=== PATIENT | female | born 2000 | race Hispanic/Latino ===

== ENCOUNTER 2018-05-26 18:50 | Emergency (ER) | payer OTHER ==
--- OUTSIDE RECORDS SUMMARY | 2018-05-26 18:52 | XMS REPORT ---
:2000 Author Organization eClinicalWorks Care Team Providers Name Role Phone Iesha Roche Provider Role Unavailable Allergies, Adverse Reactions, Alerts Substance Reaction Event Type N.K.D.A. Info Not Available Non Drug Allergy Problems Problem Type Condition Code Onset Dates Condition Status Assessment Acute bacterial conjunctivitis of H10.32 Active left eye Problem Fatty liver K76.0 Active Medications Medication Code Code Instructions Start End Date Status Dosage System Date Polytrim [facility] [id number] May 22, May 27, Active 1 drop into UNIT/ML 2017 2017 affected eye Ophthalmic Four times a day Results No Known Results Summary Purpose eClinicalWorks Submission
--- OUTSIDE RECORDS SUMMARY | 2018-05-26 18:52 | XMS REPORT ---
:2000 Author Organization eClinicalWorks Care Team Providers Name Role Phone Iesha Roche Provider Role Unavailable Allergies, Adverse Reactions, Alerts Substance Reaction Event Type N.K.D.A. Info Not Available Non Drug Allergy Problems Problem Type Condition Code Onset Dates Condition Status Assessment Encounter for general adult medical Z00.00 Active examination without abnormal findings Assessment Encounter for immunization Z23 Active Assessment Meningococcal group B vaccine Z23 Active administered Medications No Known Medications Results No Known Results Immunizations Vaccine Administration Date Meningoccal MCV4 April 14, 2018 Meningococcal Group B April 14, 2018 Summary Purpose eClinicalWorks Submission
[2018-05-26] MEDS ORDERED: KETOROLAC 30 MG/ML INJ ONE (19:50)
[2018-05-26] MEDS ORDERED: NA CHLORIDE 0.9% 1,000 ML ONE (19:51)
[2018-05-26] MEDS ORDERED: ONDANSETRON 4 MG/2 ML VIAL ONE (19:51)
[2018-05-26] MEDS ORDERED: ACETAMINOPHEN 500 MG TAB ONE (19:51)
[2018-05-26 20:30] LABS: Urine Blood NEGATIVE (NEG); Urine Glucose NEGATIVE (NEG); Urine Protein NEGATIVE (NEG); Urine Specific Gravity <1.005 (1.005-1.030)
[2018-05-26 20:33] LABS: Absolute Lymphocytes (CBC) 1.4 K/uL (0.7-4.9); Absolute Monocytes 0.5 K/uL (0.1-1.3); Absolute Neutrophil 5.3 K/uL (1.8-8.0); Basophils % 0.2 % (0-1.3); Eosinophils % 0.1 % (0-4.4); Lymphocytes % 18.9 % (15.3-44.8); MCH 31.5 pg (27.0-35.0); MCV 90.9 fL (80-100); MPV 8.3 fL (7.6-11.3); Monocytes % 7.2 % (3.3-12.3); RBC Red Blood Cell Count 4.19 M/uL (3.86-4.86)
[2018-05-26 20:43] LABS: Protime INR 1.01
[2018-05-26 20:56] LABS: Urine Bacteria <20 /HPF (<20); Urine Culture Reflex Order REFLEXED; Urine RBC <5 /HPF (NONE SEEN)
[2018-05-26 21:00] LABS: ALT/SGPT 86 U/L (12-78); AST/SGOT 57 U/L (15-37); Albumin 3.4 g/dL (3.4-5.0); Alkaline Phosphatase 172 U/L (45-117); BUN Blood Urea Nitrogen 9 mg/dL (7-18); Bicarbonate 26 mmol/L (21-32); Bilirubin Direct 0.1 mg/dL (0-0.2); Bilirubin Total 0.3 mg/dL (0.2-1.0); Glucose Level 94 mg/dL (74-106); Lipase 118 U/L (73-393); Potassium 3.4 mmol/L (3.5-5.1); Protein, Total 7.9 g/dL (6.4-8.2); Sodium Level 137 mmol/L (136-145)
[2018-05-26] MEDS ORDERED: CEFTRIAXONE/SWI 1gm 1 GM/10 ML SYR ONE (21:39)
--- NOTE | 2018-05-26 23:21 | ER ---
Nurse's Notes [facility] Name: Seda Brush Age: 17 yrs Sex: Female : 2000 Arrival Date: 05/26/2018 Time: 18:52 Bed 25 Private MD: DAVID CHOWDHURY Diagnosis: Acute Febrile Illness;Left Eye Conjunctivitis;Infectious mononucleosis Presentation: 05/26 19:00 Presenting complaint: Patient states: Left eye redness, left face tenderness, headache, aj nasal congestion for 2 days. On Augmentin and ABX eye drops. Transition of care: patient was not received from another setting of care. Onset of symptoms was May 25, 2018. Risk Assessment: Do you want to hurt yourself or someone else? Patient reports no desire to harm self or others. Initial Sepsis Screen: Does the patient meet any 2 criteria? No. Patient's initial sepsis screen is negative. Does the patient have a suspected source of infection? No. Patient's initial sepsis screen is negative. 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 Care prior to arrival: Medication(s) given: Tylenol. 19:00 Method Of Arrival: Ambulatory aj 19:00 Acuity: SHAKIR 3 aj Triage Assessment: 19:02 General: Appears in no apparent distress. comfortable, Behavior is calm, cooperative, aj appropriate for age. Pain: Complains of pain in face and scalp. EENT: Reports redness to left eye. Neuro: Level of Consciousness is awake, alert, obeys commands, Oriented to person, place, time, situation, Appropriate for age. Respiratory: Airway is patent Respiratory effort is even, unlabored, Respiratory pattern is regular, symmetrical. Derm: Skin is intact, is healthy with good turgor, Skin is pink, warm \T\ dry. normal. 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 - Social history:: Smoking status: Patient/guardian denies using tobacco. - Ebola Screening: : Patient negative for fever greater than or equal to 101.5 degrees Fahrenheit, and additional compatible Ebola Virus Disease symptoms Patient denies exposure to infectious person Patient denies travel to an Ebola-affected area in the 21 days before illness onset No symptoms or risks identified at this time. - Family history:: not pertinent. - Hospitalizations: : No recent hospitalization is reported. Screenin:59 Abuse screen: Denies threats or abuse. Denies injuries from another. Nutritional mg2 screening: No deficits noted. Tuberculosis screening: No symptoms or risk factors identified. Fall Risk IV access (20 points). Assessment: 20:57 General: Appears in no apparent distress. comfortable, Behavior is calm, cooperative. mg2 Pain: Complains of pain in scalp and face whole body Pain does not radiate. Pain currently is 5 out of 10 on a pain scale. Quality of pain is described as aching, Pain began gradually, 5 days ago Is intermittent. Neuro: Level of Consciousness is awake, alert, obeys commands, Oriented to person, place, time, situation. Cardiovascular: Capillary refill < 3 seconds Patient's skin is warm and dry. Respiratory: Airway is patent Respiratory effort is even, unlabored, Respiratory pattern is regular, symmetrical. GI: Reports nausea. : No signs and/or symptoms were reported regarding the genitourinary system. EENT: Eyes are tearing on outer aspect of conjuctiva of left eye, iris of left eye and inner aspect of conjunctiva of left eye. Derm: Skin is intact, Skin is pink, warm \T\ dry. normal. Musculoskeletal: Circulation, motion, and sensation intact. 22:47 Reassessment: Patient appears in no apparent distress at this time. Patient and/or mg2 family updated on plan of care and expected duration. Pain level reassessed. Patient is alert, oriented x 3, equal unlabored respirations, skin warm/dry/pink. Vital Signs: 19:02 BP 117 / 70; Pulse 119; Resp 20; Temp 101.1; Pulse Ox 100% on R/A; Weight 58.51 kg; aj Height 4 ft. 11 in. (149.86 cm); 21:00 BP 110 / 63; Pulse 110; Resp 18; Temp 100.2; Pulse Ox 100% on R/A; Pain 3/10; mg2 21:26 Temp 99.7(O); mg2 21:56 BP 110 / 76; Pulse 113; Resp 18; Pulse Ox 100% on R/A; Pain 0/10; mg2 22:47 BP 106 / 76; Pulse 106; Resp 18; Temp 98.6(O); Pulse Ox 100% on R/A; Pain 0/10; mg2 23:43 BP 110 / 72; Pulse 98; Resp 18; Pulse Ox 100% on R/A; Pain 0/10; mg2 19:02 Body Mass Index 26.05 (58.51 kg, 149.86 cm) ED Course: 18:52 Patient arrived in ED. sb2 18:53 DAVID CHOWDHURY is Private Physician. sb2 19:02 Triage completed. aj 19:02 Arm band placed on right wrist. Patient placed in an exam room. aj 19:15 Pj Miller MD is Attending Physician. wa 19:29 Mohsen Iniguez, SARITA is Primary Nurse. mg2 20:57 No provider procedures requiring assistance completed. Inserted saline lock: 20 gauge mg2 in right antecubital area, using aseptic technique. Blood collected. 21:00 Patient has correct armband on for positive identification. Placed in gown. Bed in low mg2 position. Call light in reach. Side rails up X 1. Door closed. Warm blanket given. 23:18 mono test added to the lab. mg2 23:33 IV discontinued, intact, bleeding controlled, No redness/swelling at site. Pressure mg2 dressing applied. Administered Medications: 20:07 Drug: NS 0.9% 1000 ml Route: IV; Rate: 1 bolus; Site: right antecubital; mg2 21:54 Follow up: Response: No adverse reaction; IV Status: Completed infusion mg2 20:07 Drug: Zofran 4 mg Route: IVP; Site: right antecubital; mg2 21:55 Follow up: Response: No adverse reaction; Marked relief of symptoms mg2 20:07 Drug: TORadol 30 mg Route: IVP; Site: right antecubital; mg2 21:55 Follow up: Response: No adverse reaction; Marked relief of symptoms; Pain is decreased mg2 21:54 Drug: Tylenol 1000 mg Route: PO; mg2 21:55 Follow up: Response: No adverse reaction; Medication administered at discharge. mg2 21:54 Drug: Rocephin - (cefTRIAXone) 1 grams Route: IVPB; Infused Over: 30 mins; Site: right mg2 antecubital; 21:55 Follow up: Response: No adverse reaction; Medication administered at discharge.; IV mg2 Status: Completed infusion Outcome: 23:20 Discharge ordered by . neto 23:43 Discharged to home ambulatory, with family. mg2 23:43 Condition: stable 23:43 Discharge instructions given to patient, family, Instructed on discharge instructions, follow up and referral plans. medication usage, Demonstrated understanding of instructions, follow-up care, medications, Prescriptions given X 1. 23:50 Patient left the ED. mg2 Signatures: Juliana Harry, RN RN aj Pj Miller MD MD wa Billeau, Sheri sb2 Mohsen Iniguez RN RN mg2
--- NOTE | 2018-05-26 23:21 | EDPHYS ---
Physician Documentation [facility] Name: Seda Brush Age: 17 yrs Sex: Female : 2000 Arrival Date: 05/26/2018 Time: 18:52 Bed 25 Private MD: DAVID CHOWDHURY ED Physician Pj Miller HPI: 05/26 19:56 This 17 yrs old Female presents to ER via Ambulatory with complaints of Flu wa Symptoms. 19:56 The patient reports fever, that was measured at 101.1 degrees Fahrenheit. Onset: The wa symptoms/episode began/occurred 6 day(s) ago. Modifying factors: there are no obvious modifying factors. Associated signs and symptoms: Pertinent positives: chills, headache, sore throat, began with L eye redness and discharge. then L facial pain. a day later developed chills and fever. has also had some vomiting and diarrhea. admits to KING. denies photophobia. started on amox yesterday by PMD. still with fever. admits to mild sore throat that has now improved, Pertinent negatives: abdominal pain, backache, chest pain, cough, night sweats, runny nose, shortness of breath. Severity of symptoms: At their worst the symptoms were moderate in the emergency department the symptoms are unchanged. The patient has not experienced similar symptoms in the past. The patient has been recently seen by a physician: the patient's primary care provider. 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 - Social history:: Smoking status: Patient/guardian denies using tobacco. - Ebola Screening: : Patient negative for fever greater than or equal to 101.5 degrees Fahrenheit, and additional compatible Ebola Virus Disease symptoms Patient denies exposure to infectious person Patient denies travel to an Ebola-affected area in the 21 days before illness onset No symptoms or risks identified at this time. - Family history:: not pertinent. - Hospitalizations: : No recent hospitalization is reported. ROS: 19:59 Neck: Negative for injury, pain, and swelling, Cardiovascular: Negative for chest pain, wa palpitations, and edema, Respiratory: Negative for shortness of breath, cough, wheezing, and pleuritic chest pain, Abdomen/GI: Negative for abdominal pain, nausea, vomiting, diarrhea, and constipation, Back: Negative for injury and pain, : Negative for injury, bleeding, discharge, and swelling, MS/Extremity: Negative for injury and deformity, Skin: Negative for injury, rash, and discoloration. 19:59 Constitutional: Positive for body aches, chills, fatigue, fever, malaise, Negative for weight loss. 19:59 Eyes: Positive for discharge, redness, swelling, of the L eye. 19:59 ENT: Positive for sore throat, Negative for ear pain, nasal discharge, rhinorrhea, difficulty swallowing, hoarseness. 19:59 Neuro: Positive for headache, Negative for altered mental status, dizziness. 19:59 All other systems are negative. Exam: 20:01 Neck: Trachea midline, no thyromegaly or masses palpated, and no cervical wa lymphadenopathy. Supple, full range of motion without nuchal rigidity, or vertebral point tenderness. No Meningismus. Chest/axilla: Normal chest wall appearance and motion. Nontender with no deformity. No lesions are appreciated. Cardiovascular: Regular rate and rhythm with a normal S1 and S2. No gallops, murmurs, or rubs. Normal PMI, no JVD. No pulse deficits. Respiratory: Lungs have equal breath sounds bilaterally, clear to auscultation and percussion. No rales, rhonchi or wheezes noted. No increased work of breathing, no retractions or nasal flaring. Abdomen/GI: Soft, non-tender, with normal bowel sounds. No distension or tympany. No guarding or rebound. No evidence of tenderness throughout. Back: No spinal tenderness. No costovertebral tenderness. Full range of motion. Skin: Warm, dry with normal turgor. Normal color with no rashes, no lesions, and no evidence of cellulitis. MS/ Extremity: Pulses equal, no cyanosis. Neurovascular intact. Full, normal range of motion. Psych: Awake, alert, with orientation to person, place and time. Behavior, mood, and affect are within normal limits. 20:01 Constitutional: The patient appears in no acute distress, alert, febrile. 20:01 Head/face: Noted is L periorbital swelling. mild. L eye noted reddened. 20:01 Eyes: Conjunctiva: injected, in the left eye, Corneas: are normal. 20:01 ENT: Posterior pharynx: erythema, that is moderate, exudate, that is moderate. 20:01 Neuro: Orientation: is normal, Mentation: is normal, Cranial nerves: grossly normal, Motor: is normal, Gait: is steady. Vital Signs: 19:02 BP 117 / 70; Pulse 119; Resp 20; Temp 101.1; Pulse Ox 100% on R/A; Weight 58.51 kg; aj Height 4 ft. 11 in. (149.86 cm); 21:00 BP 110 / 63; Pulse 110; Resp 18; Temp 100.2; Pulse Ox 100% on R/A; Pain 3/10; mg2 21:26 Temp 99.7(O); mg2 21:56 BP 110 / 76; Pulse 113; Resp 18; Pulse Ox 100% on R/A; Pain 0/10; mg2 22:47 BP 106 / 76; Pulse 106; Resp 18; Temp 98.6(O); Pulse Ox 100% on R/A; Pain 0/10; mg2 23:43 BP 110 / 72; Pulse 98; Resp 18; Pulse Ox 100% on R/A; Pain 0/10; mg2 19:02 Body Mass Index 26.05 (58.51 kg, 149.86 cm) aj MDM: 19:15 Patient medically screened. pr 20:03 Differential diagnosis: viral Infection, bacterial infection, suspect viral illness. pr supportive care. will r/o bacterial source. pt denies sexual contact. 22:42 Data reviewed: vital signs, nurses notes. Test interpretation: by ED physician or pr midlevel provider: labs noted for elevated sed rate. 5-10 wbc in UA. . Response to treatment: the patient's symptoms have markedly improved after treatment. ED course: tolerated meal in ED. I still suspect viral illness consider mono? . 23:33 Test interpretation: by ED physician or midlevel provider: mono test positive. pr 05/26 19:33 Order name: Urine Microscopic Only; Complete Time: 21:20 05/26 19:33 Order name: Basic Metabolic Panel; Complete Time: 21:20 05/26 19:33 Order name: Blood Culture Adult (2) pr 05/26 19:33 Order name: C-Reactive Protein; Complete Time: 21:20 pr 05/26 19:33 Order name: CBC with Diff; Complete Time: 21:20 pr 05/26 19:33 Order name: Lactate; Complete Time: 21:20 pr 05/26 19:33 Order name: LFT's; Complete Time: 21:20 pr 05/26 19:33 Order name: Lipase; Complete Time: 21:20 pr 05/26 19:33 Order name: Protime (+inr); Complete Time: 21:20 pr 05/26 19:33 Order name: Sed Rate; Complete Time: 21:20 pr 05/26 19:33 Order name: Strep; Complete Time: 21:20 pr 05/26 20:22 Order name: Urine Dipstick--Ancillary (enter results); Complete Time: 21:20 [facility] 05/26 20:22 Order name: Urine --Ancillary (enter results); Complete Time: 21:19 [facility] 05/26 20:47 Order name: Throat Culture [facility] 05/26 19:33 Order name: Urine Test (obtain specimen); Complete Time: 20:57 pr 05/26 19:33 Order name: Cardiac monitoring; Complete Time: 20:08 pr 05/26 19:33 Order name: IV Saline Lock - Large Bore; Complete Time: 20:08 pr 05/26 19:33 Order name: Labs collected and sent; Complete Time: 20:08 pr 05/26 19:33 Order name: O2 Sat Monitoring; Complete Time: 20:08 pr 05/26 19:33 Order name: Urine Dipstick-Ancillary (obtain specimen); Complete Time: 20:57 pr 05/26 20:57 Order name: Urine Culture [facility] 05/26 22:43 Order name: [place] Screen Profile; Complete Time: 23:28 pr Administered Medications: 20:07 Drug: NS 0.9% 1000 ml Route: IV; Rate: 1 bolus; Site: right antecubital; mg2 21:54 Follow up: Response: No adverse reaction; IV Status: Completed infusion mg2 20:07 Drug: Zofran 4 mg Route: IVP; Site: right antecubital; mg2 21:55 Follow up: Response: No adverse reaction; Marked relief of symptoms mg2 20:07 Drug: TORadol 30 mg Route: IVP; Site: right antecubital; mg2 21:55 Follow up: Response: No adverse reaction; Marked relief of symptoms; Pain is decreased mg2 21:54 Drug: Tylenol 1000 mg Route: PO; mg2 21:55 Follow up: Response: No adverse reaction; Medication administered at discharge. mg2 21:54 Drug: Rocephin - (cefTRIAXone) 1 grams Route: IVPB; Infused Over: 30 mins; Site: right mg2 antecubital; 21:55 Follow up: Response: No adverse reaction; Medication administered at discharge.; IV mg2 Status: Completed infusion Disposition: 05/26/18 23:20 Discharged to Home. Impression: Acute Febrile Illness, Left Eye Conjunctivitis, Infectious mononucleosis. - Condition is Stable. - Discharge Instructions: Infectious Mononucleosis, [id number]. - Prescriptions for Zofran 4 mg Oral Tablet - take 1 tablet by ORAL route every 12 hours As needed; 20 tablet. - Medication Reconciliation Form, Thank You Letter, Antibiotic Education, Prescription Opioid Use form. - Follow up: Private Physician; When: 1 - 2 days; Reason: Recheck today's complaints. - Problem is new. - Symptoms have improved. - Notes: return immediately for rapidly worsening concerns. see your doctor for further evaluation within 2-3 days otherwise Signatures: Dispatcher [employer] EDJuliana Roberts RN RN aj Appiah, William, MD MD wa Gardose, Michele, RN RN mg2 Corrections: (The following items were deleted from the chart) 23:34 23:20 05/26/2018 23:20 Discharged to Home. Impression: Acute Febrile Illness; Left Eye wa Conjunctivitis. Condition is Stable. Forms are Medication Reconciliation Form, Thank You Letter, Antibiotic Education, Prescription Opioid Use. Follow up: Private Physician; When: 1 - 2 days; Reason: Recheck today's complaints. Problem is new. Symptoms have improved. pr 23:50 23:34 05/26/2018 23:20 Discharged to Home. Impression: Acute Febrile Illness; Left Eye mg2 Conjunctivitis; Infectious mononucleosis. Condition is Stable. Prescriptions for Zofran 4 mg Oral Tablet - take 1 tablet by ORAL route every 12 hours As needed; 20 tablet. and Forms are Medication Reconciliation Form, Thank You Letter, Antibiotic Education, Prescription Opioid Use. Follow up: Private Physician; When: 1 - 2 days; Reason: Recheck today's complaints. Problem is new. Symptoms have improved. neto
== END 2018-05-26 23:50 | disposition home or self-care (01) ==
LOC: ER 18:50
DX: B27.90 Infectious mononucleosis, unspecified without complication (principal); R50.9 Fever, unspecified; H10.32 Unspecified acute conjunctivitis, left eye
CPT/HCPCS: 36415; 80048; 80076; 81003; 81015; 81025; 83605; 83690; 85025; 85610; 85652; 86140; 86308; 87040; 87070; 87081; 87086; 87088; 96361; 96374; 96375; 99284; J0696; J2405; J7030

== ENCOUNTER 2024-02-18 02:04 | Emergency (ER) | payer OTHER, SELFPAY ==
--- OUTSIDE RECORDS SUMMARY | 2024-02-18 02:08 | XMS REPORT | Continuity of Care Document ---
Author Name Unknown Address [address] [facility] Alex. [address] [place] [address] [facility] thconnect Address [address] [facility]. [address] [place] [address] Care Team Providers Care Ammonium Nitrate Neutralizer Name Role Phone AL AMARAL Primary Care Physician Unavail able Marilyn Roche Attending Clinician Unavailable Liang George Attending Clinician Unavailable Liang George Attending Clinician Unavailable [email or web address]_S Attending Clinician Unavaila KARAN Rodgers Attending Clinician Unavailable MAYELA HOUGH Attending Clinician Unavailable EbrahiMayela Chan Attending Clinician [phone] Doctor Unassigned, Badger Lee Attending Clinician U navailable Provider, [facility] Attending Clinician Un available Suzy Bloom Attending Clinician [phone] Liang George Admitting Clinician Unavailable [email or web address]_S Admitting Clinician Unavaila ble EBMAYELA CORDOVA Admitting Clinician Unavailable Payers Payer Name Policy Type Policy Number Effective Date Expirati on Date Source [facility] [id number] 2020 00:00:00 Problems Condition Name Condition Details Condition Category Status Onset Date Resolution Date Last Treatment Date Treating Clinician Comments Source Oral contracept yobani use Oral contracept yobani use Disease Active 01-17 00:00: 00 [facility] On oral contracept yobani pills for non-contra ception indication On oral contracept yobani pills for non-contra ception indication Disease Active 01-17 00:00: 00 [facility] Acute bacterial conjunctiv itis of left eye Acute bacterial conjunctiv itis of left eye Problem Active [facility] Fatty liver Fatty liver Diagnosis Active [facility] Encounter for general adult medical examinatio n without abnormal findings Encounter for general adult medical examinatio n without abnormal findings Problem Active [facility] Elevated liver enzymes Elevated liver enzymes Diagnosis Active [facility] Allergies, Adverse Reactions, Alerts Allergy Name Allergy Type Status Severity Reaction(s) Onset Date Inactive Date Treating Clinician Comments Source Iodine And Iodide Containi ng Products Propensi ty to adverse reaction s Active Rash 05-12 00:00: 00 [facility] IODINE AND IODIDE CONTAINI NG PRODUCTS Drug Class Active Rash 05-12 00:00: 00 [facility] Oseltami vir Phosphat e Propensi ty to adverse reaction s Active Rash 01-10 00:00: 00 [facility] OSELTAMI VIR PHOSPHAT E DRUG INGREDI Active Rash 01-10 00:00: 00 [facility] No Known Medicati on Allergie s Drug Active [facility] No Known Medicati on Allergie s Drug Active [facility] No Known Medicati on Allergie s Drug Active [facility] No Known Medicati on Allergie s Drug Active [facility] No Known Medicati on Allergie s Drug Active [facility] Social History Social Habit Start Date Stop Date Quantity Comments Source Exposure to SARS-CoV-2 (event) Not sure [facility] Alcohol intake 2020-08-10 00:00:00 2020-08-10 00:00:00 0 /d [facility] Tobacco use and exposure 2016-01-08 00:00:00 2016-01-08 00:00:00 Never used [facility] Sex Assigned At 2000 00:00:00 2000 00:00:00 [facility] Smoking Status Start Date Stop Date Source Never smoker [facility] Medications Ordered Medication Name Filled Medication Name Start Date Stop Date Current Medication? Ordering Clinician Indication Dosage Frequency Signature (SIG) Comments Components Source cefTRIAXone (ROCEPHIN) 1,000 mg in NaCl 0.9% (NS) 50 mL MINI-BAG 2020-10 21:45: 00 08-27 21:25 :00 No 1000mg 1,000 mg, IV Piggyback, ONCE, 1 dose, On Fri08/27/21 at 1645, Administer over 30 Minutes, 50 mL
Reas on for Anti-Infec tive: Documented Infection< br>Documen penny Infection Site: Urine
D uration of Therapy: Other (see Comments) [facility] acetaminoph en (TYLENOL) tablet 1,000 mg 2020-10 21:45: 00 08-27 20:44 :00 No 1000mg 1,000 mg, Oral, ONCE, 1 dose, On Fri08/27/21 at 1645, [place] [facility] iopamidol (ISOVUE 370-500 mL) injection 100 mL 2020-10 21:30: 00 08-27 20:11 :00 No [id number] 100mL 100 mL, Intravenou s, ONCE, 1 dose, On Fri08/27/21 at 1630, Routine [facility] morpHINE injection 4 mg 2020-10 19:15: 00 08-27 20:44 :00 No 4mg 4 mg, Slow IV Push, ONCE, 1 dose, On Fri08/27/21 at 1415, STAT [facility] ondansetron (ZOFRAN (PF)) injection 4 mg 2020-10 18:45: 00 08-27 20:44 :00 No 4mg 4 mg, Slow IV Push, ONCE, 1 dose, On Fri08/27/21 at 1345, [place] [facility] NaCl 0.9% (NS) bolus infusion 1,000 mL 2020-10 18:45: 00 08-27 22:15 :00 No 1000mL at 999 mL/hr, 1,000 mL, IV Infusion, ONCE, 1 dose, On Fri08/27/21 at 1345, W[place]ACE [facility] cefdinir 300 mg capsule 2020-10 00:00: 00 09-07 05:59 :00 No [id number] 300mg Take 1 capsule by mouth every 12 (twelve) hours for 10 days. [facility] ondansetron 4 mg disintegrat ing tablet 2020-10 00:00: 00 09-02 04:59 :00 No [id number] 4mg Take 1 tablet by mouth every 8 (eight) hours as needed for Nausea and Vomiting (N/V) for up to 5 days. [facility] Amoxicillin Amoxicillin 05-25 00:00: 00 06-01 00:00 :00 No Iesha Holstein 1 tablet Comm on [facility] Polytrim Polytrim 05-22 00:00: 00 05-27 00:00 :00 No Iesha Holstein 1 drop into affected eye [facility] L. RHAMNOSUS GG/INULIN (CULTURELLE PROBIOTICS ORAL) 02-19 20:43: 56 Yes Take by mouth. [facility] L. RHAMNOSUS GG/INULIN (CULTURELLE PROBIOTICS ORAL) 02-19 15:43: 56 Yes Take by mouth. [facility] norgestimat e-ethinyl estradiol (MONONESSA) 0.25-35 mg-mcg per tablet 02-19 00:00: 00 Yes [id number] 1{tbl} Take 1 tablet by mouth daily. [facility] dicyclomine 20 mg tablet 12-31 00:00: 00 Yes [facility] Vital Signs Vital Name Observation Time Observation Value Comments S tanialiana Height/Length Measured 2020-06-01 08:15:19 Systolic blood pressure 2021-08-27 22:16:00 102 mm[Hg] [facility] Diastolic blood pressure 2021-08-27 22:16:00 64 mm[Hg] [facility] Heart rate 2021-08-27 22:16:00 99 /[facility] 2021-08-27 22:16:00 16 /min [facility] Oxygen saturation in Arterial blood by Pulse oximetry 2021-08-27 22:16:00 99 /min [facility] Body temperature 2021-08-27 20:54:00 38.17 Chery [facility] Body height 2021-08-27 17:07:[address] [facility] Body weight 2021-08-27 17:07:[address] [facility] BMI 2021-08-27 17:07:00 27.22 kg/m2 [facility] Heart rate 2020-08-10 14:12:00 96 /min Unive [facility] Oxygen saturation in Arterial blood by Pulse oximetry 2020-08-10 14:12:00 98 /min [facility] Systolic blood pressure 2020-08-10 13:55:00 121 mm[Hg] [facility] Diastolic blood pressure 2020-08-10 13:55:00 75 mm[Hg] [facility] Body temperature 2020-08-10 13:55:00 37.11 Chery [facility] Respiratory rate 2020-08-10 13:55:00 18 /min [facility] Body height 2020-08-10 13:55:[address] [facility] Body weight 2020-08-10 13:55:[address] [facility] BMI 2020-08-10 13:55:00 26.66 kg/m2 [facility] Height/Length Measured 2021-11-13 12:31:33 149.86 cm Weight Dosing 2021-11-13 12:31:33 60.78 kg Height/Length Measured 2021-11-13 11:49:11 149.86 cm Weight Dosing 2021-11-13 11:49:11 60.78 kg Height/Length Measured 2021-11-13 11:48:01 149.86 cm Weight Dosing 2021-11-13 11:48:01 61.68 kg Height/Length Measured 2021-11-13 11:48:00 149.86 cm Weight Dosing 2021-11-13 11:48:00 61.68 kg Height/Length Measured 2021-11-13 11:47:30 149.86 cm Weight Dosing 2021-11-13 11:47:30 61.68 kg Height/Length Measured 2021-11-13 11:47:28 149.86 cm Weight Dosing 2021-11-13 11:47:28 61.68 kg Height/Length Measured 2021-11-13 11:46:51 149.86 cm Weight Dosing 2021-11-13 11:46:51 61.68 kg Height/Length Measured 2020-06-06 06:57:38 Weight Dosing 2020-06-06 06:57:38 Procedures Procedure Date / Time Performed Performing Clinicia n Source CT ABDOMEN PELVIS W CONTRAST 2021-08-27 20:14:00 Mayela Hough [facility] LIPASE 2021-08-27 19:37:00 Mayela Hough [facility] COMP. METABOLIC PANEL (25932) 2021-08-27 19:37:00 [facility] CBC WITH DIFF 2021-08-27 [facility]37[facility] 2021-08-27 19:37:00 Mayela Hough [facility] URINALYSIS 2021-08-27 19:33:00 Mayela Hough [facility] NOTICE OF PRIVACY PRACTICES 2021-08-27 16:29:05 Doctor Unassigned, Badger Lee [facility] CONSENT/REFUSAL FOR DIAGNOSIS AND TREATMENT 2021-08-27 16:28:52 Doctor Unassigned, Badger Lee [facility] POCT GRP A STREP (MOLECULAR) 2020-08-10 14:04:00 Suzy Geiger [facility] Encounters Start Date/Time End Date/Time Encounter Type Admission Type Attending [facility] Care Facility Care Department Encounter ID Source 2021-11-21 12:41:34 Outpatient HolsteinMarilyn sheppard [facility] [id number] [facility] 2021-11-21 12:25:34 [facility] [id number] [facility] 2021-11-13 11:43:28 Inpatient 3 Liang George [facility] [id number] [facility] 2023-08-23 00:00:00 2023-08-23 00:00:00 Outpatient GC_GCBZW_Ka diyala_S PRIV PRIV [id number] [facility] 2023-04-25 15:45:00 2023-04-25 15:45:00 Outpatient INJ, KARAN CUETO [facility] [id number] [facility] 2021-08-27 12:15:00 2021-08-27 17:18:00 Emergency X MAYELA HOUGH [facility] ERT [id number] [facility] 2021-08-27 12:15:00 2021-08-27 17:18:00 Emergency Mayela Hough [facility] [id number] [id number] [facility] 2021-08-27 00:00:00 2021-08-27 00:00:00 Orders Only Doctor Unassigned, Badger Lee [facility] 1.0.114 [id number] [facility] 2020-08-10 08:43:08 2020-08-10 09:03:08 Urgent Care Provider, [facility] Suzy Geiger [facility] [address] 1..114 [id number] [facility] 2020-08-10 08:40:00 2020-08-10 08:40:00 Outpatient R [facility] [id number] [facility] 2020-06-06 06:16:00 2020-06-06 23:59:00 Outpatient 3 Liang George [facility] [id number] [facility] 2020-06-06 06:16:00 2020-06-06 06:16:00 Outpatient 3 Liang George [facility] [id number] [facility] 2018-11-23 15:30:00 2018-11-23 15:30:[address] [facility] [id number] [facility] 2018-11-13 09:30:00 2018-11-13 09:30:00 [facility] [id number] [facility] 2018-06-24 11:23:00 2018-06-24 11:23:00 [facility] [id number] [facility] 2018-05-26 13:21:00 2018-05-26 13:21:00 [facility] [address] [facility] [id number] [facility] 2018-05-25 10:30:00 2018-05-25 10:30:[address] [facility] [id number] [facility] 2018-05-22 11:00:00 2018-05-22 11:00:00 [facility] [id number] [facility] 2018-04-14 10:00:00 2018-04-14 10:00:[address] [facility] [id number] [facility] Results Test Description Test Time Test Comments Results Result Co mments Source [facility]09* Test Item Value Reference Range Interpretation Comme nts LIPASE (test code = 0514407744) 94 U/L 0-220 Lab Interpretation (test cod e = 13420-4) Normal [facility] [id number] 20:06:22* Test Item Value Reference Range Interpretation Comme nts WBC (test code = 6690-2) See_Comment H [Automated message] The system which generated this result transmitted reference range: 4.30 - 11.10 10*3/?L. The reference range was not used to interpret this result as normal/abnormal. RBC (test code = 789-8) See_Comment [Automated message] The system which generated this result transmitted reference range: 3.93 - 5.25 10*6/?L. The reference range was not used to interpret this result as normal/abnormal. HGB (test code = 718-7) 14.6 g/dL 11.6-15.0 HCT (test code = 4544-3) 43.7 % 35.7-45.2 MCV (test code = 787-2) 91.8 fL 80.6-95.5 MCH (test code = 785-6) 30.7 pg 25.9-32.8 MCHC (test code = 786-4) 33.4 g/dL 31.6-35.1 RDW-SD (test code = 54505-3) 42.0 fL 39.0-49.9 RDW-CV (test code = 788-0) 12.4 % 12.0-15.5 PLT (test code = 777-3) See_Comment H [Automated message] The system which generated this result transmitted reference range: 166 - 358 10*3/?L. The reference range was not used to interpret this result as normal/abnormal. MPV (test code = 49598-0) 9.4 fL 9.5-12.9 L NRBC/100 WBC (test code = 8080552358) See_Comment [Automated message] The system which generated this result transmitted reference range: 0.0 - 10.0 /100 WBCs. The reference range was not used to interpret this result as normal/abnormal. NRBC x10^3 (test code = 4183820676) <0.01 See_Comment [Automated message] The system which generated this result transmitted reference range: 10*3/?L. The reference range was not used to interpret this result as normal/abnormal. GRAN MAT (NEUT) % (test code = 770-8) 91.6 % IMM GRAN % (test code = 3243825055) 0.40 % LYMPH % (test code = 736-9) 5.8 % MONO % (test code = 5905-5) 1.8 % EOS % (test code = 713-8) 0.1 % BASO % (test code = 706-2) 0.3 % GRAN MAT x10^3(ANC) (test code = 9480965368) 14.60 10*3/uL 1.88-7.09 H IMM GRAN x10^3 (test code = 6988378931) 0.07 10*3/uL 0.00-0.06 H LYMPH x10^3 (test code = 731-0) 0.93 10*3/uL 1.32-3.29 L MONO x10^3 (test code = 742-7) 0.28 10*3/uL 0.33-0.92 L EOS x10^3 (test code = 711-2) <0.03 0.03-0.39 L BASO x10^3 (test code = 704-7) 0.04 10*3/uL 0.01-0.07 Lab Interpretation (test code = 28627-7) Abnormal [facility] [id number] 19:37:00* Test Item Value Reference Range Interpretation Comme nts POCT PREG (test code = 1605) negative On board controls acceptable with C Line (test code = 3574) present POCT PREG LOT # (test code = 3575) [id number] POCT PREG TEST DATE ( test code = 3576) 10-26-2022 Lab Interpretation (test cod e = 99503-7) Normal [facility] GRP A STREP (MOLECULAR)2020-08-10 14:04:00* Test Item Value Reference Range Interpretation Comme nts POCT GP A STREP (test code = 95085-6) neg Negative - Negative Lab Interpretation (test cod e = 85478-0) Normal [facility] Qual[facility] [id number] 07:30:25* Test Item Value Reference Range Interpretation Comme nts hCG Ur (test code = hCG Ur) Negative If the result is "Negative" in patients suspected to be , recommend retest with a sample obtained 48 to 72 hours later, or by ordering a quantitative assay. If the result is "Borderline" testing should be repeated in 48 to 72 hours. Lot # (test code = Lot #) [id number] N Expiration Dt (test code = Expiration Dt) 2021-06-26 N Neg Control (test code = Neg Control) Negative Pos Control (test code = Pos Control) Positive Internal QC (test code = Internal QC) Acceptable HCG Qualitative [id number] 16:09:00* Test Item Value Reference Range Interpretation Comme nts HCG, Serum Qual (test code = HCG, Serum Qual) Negative Negative Complete Blood Count with [id number] 16:02:13* Test Item Value Reference Range Interpretation Comme nts WBC (test code = WBC) 10.6 x10 4.4-10.5 H RBC (test code = RBC) 4.66 x10 3.75-5.20 Hgb (test code = Hgb) 13.9 g/dL 12.2-14.8 Hct (test code = Hct) 43.6 % 36.5-44.4 MCV (test code = MCV) 93.60 fL 80.00-100.00 MCHC (test code = MCHC) 31.90 g/dL 32.00-37.50 L RDW CV (test code = RDW CV) 11.8 % 11.5-14.5 MCH (test code = MCH) 29.8 pg 27.0-32.5 Platelets (test code = Platelets) 377.0 x10 140.0-440.0 MPV (test code = MPV) 9.3 fL N Slide Review (test code = Slide Review) Auto Auto Result crea penny by GL_SJM_SLIDE_REV_AUTO nRBC (test code = nRBC) 0 N NRBC Abs (test code = NRBC Abs) 0.00 x10 N IPF (test code = IPF) 0 % N Automated [id number] 16:02:13* Test Item Value Reference Range Interpretation Comme nts Neutro Auto (test code = Gurjit tro Auto) 56.5 % 36.0-70.0 Lymph Auto (test code = Lymph Auto) 34.9 % 12.0-44.0 [place] Auto (test code = [place] Auto) 5.3 % 0.0-11.0 Eos, Auto (test code = Eos, Auto) 2.2 % 0.0-7.0 Basophil Auto (test code = B asophil Auto) 0.8 % 0.0-2.0 Neutro Absolute (test code = Neutro Absolute) 6.0 x10 1.6-7.4 Lymph Absolute (test code = Lymph Absolute) 3.70 x10 .50-4.60 [place] Absolute (test code = M luis angel Absolute) .56 x10 .00-1.20 Eos Absolute (test code = Eo s Absolute) 0.23 x10 0.00-0.74 Baso Absolute (test code = B aso Absolute) 0.08 x10 0.00-0.21 IG [id number] 16:02:13* Test Item Value Reference Range Interpretation Comme nts IG (test code = IG) 0.3 % 0.0-5.0 IG Abs (test code = IG Abs) 0 x10 N
[2024-02-18] MEDS ORDERED: FAMOTIDINE 20 MG/2 ML VIAL IV ONE (02:34)
[2024-02-18] MEDS ORDERED: ONDANSETRON 4 MG/2 ML VIAL ONE (02:34)
[2024-02-18] MEDS ORDERED: NA CHLORIDE 0.9% 1,000 ML ONE (02:35)
[2024-02-18 02:51] LABS: Absolute Basophils 0.1 K/uL (0-0.5); Absolute Eosinophils 0.5 K/uL (0-0.5); Absolute Lymphocytes (CBC) 5.6 K/uL (0.7-4.9); Absolute Monocytes 0.9 K/uL (0.1-1.3); Absolute Neutrophil 5.8 K/uL (1.8-8.0); Basophils % 0.7 % (0-1.3); Eosinophils % 3.8 % (0-4.4); Hematocrit 40.8 % (36.0-45.0); Hemoglobin 13.4 g/dL (12.0-15.0); Lymphocytes % 43.4 % (15.3-44.8); MCH 29.8 pg (27.0-35.0); MCHC 32.7 g/dL (32.0-36.0); MPV 7.2 fL (7.6-11.3); Neutrophils % 45.1 % (41.7-73.7); Platelets 470 thou/uL (152-406); RBC Red Blood Cell Count 4.49 M/uL (3.86-4.86); Red Cell Distribution Width 13.4 % (12.1-15.2)
[2024-02-18 02:56] LABS: Specific Gravity 1.024 (1.005-1.030)
[2024-02-18 02:57] LABS: Specific Gravity 1.024 (1.005-1.030); Sqamous Epithelial <5 /HPF (None Seen); Urine Bacteria <20 /HPF (<20); Urine Bilirubin NEGATIVE (Negative); Urine Blood Negative (Negative); Urine Clarity Clear (Clear); Urine Color Light-Yellow (Yellow); Urine Culture Reflex Order NOT NEEDED; Urine Glucose NEGATIVE (Negative); Urine Ketones NEGATIVE (Negative); Urine Microscopic Reflex YN ORDER UMIC; Urine Mucus Slight /HPF (None Seen); Urine Nitrite NEGATIVE (Negative); Urine Protein NEGATIVE (Negative); Urine RBC <5 /HPF (None Seen); Urine Urobilinogen Normal (Normal); Urine WBC <5 /HPF (<5)
[2024-02-18 03:03] LABS: Albumin 3.7 g/dL (3.4-5.0); Albumin/Globulin Ratio 0.9 (1.1-1.8); Anion Gap 8.3 mEq/L (5.0-15.0); Bilirubin Total 0.2 mg/dL (0.2-1.0); Globulin 4.2 g/dL (2.3-3.5); Potassium 3.3 mEq/L (3.5-5.1); Protein, Total 7.9 g/dL (6.4-8.2)
[2024-02-18] MEDS ORDERED: POTASSIUM 25 MEQ EFFERV TAB ONE (04:46)
[2024-02-18] MEDS ORDERED: MAGNES/ALUMIN/SIMET 30ML UCUP ONE (04:51)
[2024-02-18] MEDS ORDERED: LIDOCAINE VISCOUS 2% 10ML ORAL SOLN ONE (04:52)
[2024-02-18] MEDS ORDERED: PANTOPRAZOLE 40 MG INJ ONE (04:52)
--- NOTE | 2024-02-18 05:01 | EDPHYS ---
Physician Documentation [facility] Name: Seda Brush Age: 23 yrs Sex: Female : 2000 Arrival Date: 02/18/2024 Time: 02:04 Bed 6 Private MD: ED Physician Garry Canchola HPI: 02/17 02:35 This 23 yrs old Female presents to ER via Ambulatory with complaints of cp Abdominal Pain. 02:35 The patient presents with abdominal pain in the left upper quadrant. Onset: The cp symptoms/episode began/occurred last night. The symptoms do not radiate. Associated signs and symptoms: Pertinent positives: nausea, Pertinent negatives: chest pain, constipation, diarrhea, dysuria, fever, vomiting. The symptoms are described as bloated. 02:35 Severity of pain: in the emergency department the pain is unchanged despite home cp interventions. 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 - Infectious Disease History:: Denies. - Social history:: Smoking status: Patient denies any tobacco usage or history of. Patient/guardian denies using alcohol, street drugs. ROS: 02:36 Constitutional: Negative for body aches, chills, fever, poor PO intake, cp 02:36 Abdomen/GI: Positive for abdominal pain, nausea, Negative for 02:36 Eyes: Negative for injury, pain, redness, and discharge, cp 02:36 ENT: Negative for drainage from ear(s), ear pain, sore throat, difficulty swallowing, difficulty handling secretions, 02:36 Neck: Negative for pain with movement, pain at rest, stiffness, 02:36 Cardiovascular: Negative for chest pain, 02:36 Respiratory: Negative for cough, shortness of breath, wheezing, 02:36 Back: Negative for pain at rest, pain with movement, 02:36 : Negative for urinary symptoms, hematuria, flank pain, 02:36 Neuro: Negative for altered mental status, headache, weakness, 02:36 All other systems are negative, Exam: 02:40 Constitutional: The patient appears in no acute distress, alert, awake, non-toxic, well cp developed, well nourished, 02:40 Head/Face: Normocephalic, atraumatic. cp 02:40 Eyes: Periorbital structures: appear normal, Conjunctiva: normal, no exudate, no injection, Sclera: no appreciated abnormality, Lids and lashes: appear normal, bilaterally, 02:40 ENT: External ear(s): are unremarkable, Nose: is normal, Mouth: Lips: moist, Oral mucosa: pink and intact, moist, Posterior pharynx: Airway: no evidence of obstruction, patent, 02:40 Chest/axilla: Inspection: normal, 02:40 Cardiovascular: Rate: normal, Rhythm: regular, 02:40 Respiratory: the patient does not display signs of respiratory distress, Respirations: normal, no use of accessory muscles, no retractions, labored breathing, is not present, Breath sounds: are clear throughout, no decreased breath sounds, no stridor, no wheezing, 02:40 Abdomen/GI: Inspection: abdomen appears normal, Bowel sounds: active, all quadrants, Palpation: soft, in all quadrants, mild abdominal tenderness, in the left upper quadrant, rebound tenderness, is not appreciated, involuntary guarding, is not appreciated, 02:40 Back: pain, is absent, ROM is normal, Vital Signs: 02:20 BP 135 / 86; Pulse 83; Resp 16; Temp 97.9(TE); Pulse Ox 97% ; Weight 66.5 kg; Height 4 cm10 ft. 11 in. ; Pain 7/10; 03:00 BP 120 / 77; Pulse 83; Resp 16; Pulse Ox 100% on R/A; km8 03:30 BP 125 / 77; Pulse 82; Resp 16; Pulse Ox 100% on R/A; km8 04:00 BP 124 / 84; Pulse 68; Resp 16; Pulse Ox 100% on R/A; km8 05:02 BP 102 / 71; Pulse 97; Resp 20; Temp 97.9; Pulse Ox 100% ; Pain 2/10; bm8 02:20 Body Mass Index 29.61 (66.50 kg, 149.86 cm) cm10 02:20 Pain Scale: Adult cm10 05:02 Pain Scale: Adult bm8 Beth Coma Score: 02:28 Eye Response: spontaneous(4). Motor Response: obeys commands(6). Verbal Response: km8 oriented(5). Total: 15. MDM: 02:12 Patient medically screened. 05:00 Data reviewed: vital signs, nurses notes, lab test result(s), radiologic studies, CT cp scan. 05:00 Differential diagnosis: cholecystitis, Cholelithiasis, diverticulitis, gastritis, cp gastroesophageal reflux disease, pancreatitis, Peptic Ulcer Disease, Perf. Duodenal Ulcer, Perf. Gastric Ulcer, Pyelonephritis, Ureterolithiasis, urinary tract infection. I considered the following discharge prescriptions or medication management in the emergency department Medications were administered in the Emergency Department. See MAR. Counseling: I had a detailed discussion with the patient and/or guardian regarding the historical points, exam findings, and any diagnostic results supporting the discharge/admit diagnosis, lab results, radiology results, to return to the emergency department if symptoms worsen or persist or if there are any questions or concerns that arise at home. Response to treatment: the patient's symptoms have mildly improved after treatment, and as a result, I will discharge patient. Special discussion: Based on the patient's Hx, exam, and Dx evaluation, there is no indication for emergent surgery or inpatient Tx. It is understood by the patient/guardian that if the Sx's persist or worsen they need to return immediately for re-evaluation. 02/17 02:27 Order name: CBC with Diff; Complete Time: 03:05 02/17 03:05 Interpretation: Normal except: WBC 12.90; PLT 470; MPV 7.2; LYMA 5.6. 02/17 02:27 Order name: CMP; Complete Time: 03:05 02/17 04:43 Interpretation: Normal except: K 3.3; GLUC 121; ALK 132; GLOB 4.2; A/G 0.9. 02/17 02:27 Order name: Lipase; Complete Time: 03:05 02/17 02:27 Order name: Test, Urine; Complete Time: 03:05 cp 02/17 02:27 Order name: Urinalysis w/ reflexes; Complete Time: 03:05 02/17 03:06 Order name: CT Abd/Pelvis - IV Contrast Only cp 02/17 02:27 Order name: IV Saline Lock; Complete Time: 02:28 02/17 02:27 Order name: Labs collected and sent; Complete Time: 02:28 02/17 04:41 Order name: PO challenge; Complete Time: 05:06 cp Administered Medications: 02:38 Drug: NS 0.9% IV 1000 ml IV at 1 bolus Per protocol; 1000 mL bolus Route: IV; Rate: 1 km8 bolus; Site: right antecubital; 05:05 Follow up: Response: No adverse reaction; IV Status: Completed infusion; IV Intake: bm8 1000ml 02:38 Drug: Famotidine IVP 20 mg IVP once; dilute with 10 mL 0.9% NaCl; give over 2 minutes km8 Route: IVP; Site: right antecubital; 03:14 Follow up: Response: No adverse reaction km8 02:38 Drug: Ondansetron IVP 4 mg IVP once; over 2 minutes Route: IVP; Site: right antecubital;km8 03:13 Follow up: Response: No adverse reaction; Nausea is decreased km8 04:50 Drug: Potassium PO Effervescent Tablet 25 mEq PO once; dissolve in 4 ounces of water or bm8 juice Route: PO; 05:04 Follow up: Response: No adverse reaction bm8 04:58 Drug: Pantoprazole IVP 40 mg IVP once Route: IVP; Site: right antecubital; bm8 05:04 Follow up: Response: No adverse reaction bm8 04:58 Drug: GI Cocktail without - (Maalox PO 30 ml, Lidocaine Mucous Membrane 2 % 15 bm8 ml) PO once Route: PO; 05:04 Follow up: Response: No adverse reaction bm8 Disposition Summary: 02/18/24 05:00 Discharge Ordered Notes: Location: Home cp Problem: new cp Symptoms: have improved cp Condition: Stable cp Diagnosis - Upper abdominal pain, unspecified cp Followup: cp - With: Private Physician - When: 2 - 3 days - Reason: Recheck today's complaints Discharge Instructions: - Discharge Summary Sheet cp - Abdominal Pain, Adult cp Forms: - Medication Reconciliation Form cp - Antibiotic Education cp - Prescription Opioid Use cp - Patient Portal Instructions cp - Leadership Thank You Letter cp Prescriptions: - Pepcid 20 mg Oral Tablet - take 1 tablet ORAL route every 12 hours for 10 days; 20 tablet; Refills: 0, cp Product Selection Permitted - Zofran 4 mg Oral Tablet - take 1 tablet ORAL route every 12 hours As needed; 20 tablet; Refills: 0, cp Product Selection Permitted Signatures: Dispatcher [employer] EDGarry Sotelo PA PA cp Martinez, Clarissa, RN RN cm10 Mariluz Elizabeth, RN RN km8 Tad Cowart, RN RN bm8
--- NOTE | 2024-02-18 05:01 | ER ---
Nurse's Notes [facility] Name: Seda Brush Age: 23 yrs Sex: Female : 2000 Arrival Date: 02/18/2024 Time: 02:04 Bed 6 Private MD: Diagnosis: Upper abdominal pain, unspecified Presentation: 02/17 02:20 Chief complaint: Patient states: Upper abdominal pain onset tonight at 1900. Pt rates cm10 the pain a 7 and describes the pain as cramping. Pt also reports nausea. Coronavirus screen: Client denies travel out of the [place] in the last 14 days. At this time, the client does not indicate any symptoms associated with coronavirus-19. Ebola Screen: Patient denies travel to an Ebola-affected area in the 21 days before illness onset. No symptoms or risks identified at this time. Initial Sepsis Screen: Does the patient meet any 2 criteria? No. Patient's initial sepsis screen is negative. Does the patient have a suspected source of infection? No. Patient's initial sepsis screen is negative. Risk Assessment: Do you want to hurt yourself or someone else? Patient reports no desire to harm self or others. Onset of symptoms was February 18, 2024. 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 - Infectious Disease History:: Denies. - Social history:: Smoking status: Patient denies any tobacco usage or history of. Patient/guardian denies using alcohol, street drugs. Screenin:28 [facility] ED Fall Risk Assessment (Adult) History of falling in the last 3 months, km8 including since admission No falls in past 3 months (0 pts) Confusion or Disorientation No (0 pts) Intoxicated or Sedated No (0 pts) Impaired Gait No (0 pts) Mobility Assist Device Used No (0 pt) Altered Elimination No (0 pt) Score/Fall Risk Level 0 - 2 = Low Risk Oriented to surroundings, Maintained a safe environment, Educated pt \T\ family on fall prevention, incl call for assistance when getting out of bed, Assessed \T\ reinforced patient's understanding of fall precautions. Abuse screen: Denies threats or abuse. Denies injuries from another. Nutritional screening: No deficits noted. Tuberculosis screening: No symptoms or risk factors identified. Assessment: 02:28 General: Appears in no apparent distress. Behavior is calm, cooperative, appropriate km8 for age. Pain: Complains of pain in left upper quadrant Pain does not radiate. Pain currently is 7 out of 10 on a pain scale. Quality of pain is described as crampy, Pain began 7 hours ago Is continuous. Neuro: Level of Consciousness is awake, alert, obeys commands, Oriented to person, place, time, situation. Cardiovascular: Denies chest pain, shortness of breath, Patient's skin is warm and dry. Respiratory: Airway is patent Respiratory effort is even, unlabored, Respiratory pattern is regular, symmetrical. GI: Abdomen is non-distended, Bowel sounds present X 4 quads. Abd is non tender Reports upper abdominal pain, nausea. : No signs and/or symptoms were reported regarding the genitourinary system. EENT: No signs and/or symptoms were reported regarding the EENT system. Derm: No signs and/or symptoms reported regarding the dermatologic system. Skin is intact, is healthy with good turgor, Skin is dry, Skin is pink, warm \T\ dry. normal, Skin temperature is warm. Musculoskeletal: No signs and/or symptoms reported regarding the musculoskeletal system. Range of motion: intact in all extremities. 03:14 Reassessment: Patient appears in no apparent distress at this time. No changes from km8 previously documented assessment. Patient and/or family updated on plan of care and expected duration. Pain level reassessed. Patient is alert, oriented x 3, equal unlabored respirations, skin warm/dry/pink. 04:40 Reassessment: po challenge started. bm8 05:02 Reassessment: Patient appears in no apparent distress at this time. No changes from bm8 previously documented assessment. Patient and/or family updated on plan of care and expected duration. Pain level reassessed. Patient is alert, oriented x 3, equal unlabored respirations, skin warm/dry/pink. Patient states feeling better. Patient states symptoms have improved. 05:06 Reassessment: pt's passed po challenge. bm8 Vital Signs: 02:20 BP 135 / 86; Pulse 83; Resp 16; Temp 97.9(TE); Pulse Ox 97% ; Weight 66.5 kg; Height 4 cm10 ft. 11 in. ; Pain 7/10; 03:00 BP 120 / 77; Pulse 83; Resp 16; Pulse Ox 100% on R/A; km8 03:30 BP 125 / 77; Pulse 82; Resp 16; Pulse Ox 100% on R/A; km8 04:00 BP 124 / 84; Pulse 68; Resp 16; Pulse Ox 100% on R/A; km8 05:02 BP 102 / 71; Pulse 97; Resp 20; Temp 97.9; Pulse Ox 100% ; Pain 2/10; bm8 02:20 Body Mass Index 29.61 (66.50 kg, 149.86 cm) cm10 02:20 Pain Scale: Adult cm10 05:02 Pain Scale: Adult bm8 Beth Coma Score: 02:28 Eye Response: spontaneous(4). Motor Response: obeys commands(6). Verbal Response: km8 oriented(5). Total: 15. ED Course: 02:08 Patient arrived in ED. ra3 02:12 Garry Smith PA is PHCP. cp 02:12 Garry Canchola MD is Attending Physician. cp 02:22 Triage completed. cm10 02:23 Arm band placed on Patient placed in an exam room, on a stretcher. cm10 02:28 Mariluz Elizabeth, SARITA is Primary Nurse. km8 02:28 Patient has correct armband on for positive identification. Placed in gown. Bed in low km8 position. Call light in reach. Side rails up X 1. Pulse ox on. NIBP on. Warm blanket given. 02:28 Initial lab(s) drawn, by nc, sent to lab. Urine collected: clean catch specimen, clear. km8 02:28 Inserted saline lock: 20 gauge in right antecubital area, using aseptic technique. bm8 Blood collected. 02:31 CBC with Diff Sent. km8 02:31 CMP Sent. km8 02:31 Lipase Sent. km8 02:31 Test, Urine Sent. km8 02:31 Urinalysis w/ reflexes Sent. km8 03:33 CT Abd/Pelvis - IV Contrast Only In Process Unspecified. EDMS 05:02 Provided Education on: post er care. bm8 05:02 No provider procedures requiring assistance completed. bm8 05:03 IV discontinued, intact, bleeding controlled, No redness/swelling at site. Pressure bm8 dressing applied. Administered Medications: 02:38 Drug: NS 0.9% IV 1000 ml IV at 1 bolus Per protocol; 1000 mL bolus Route: IV; Rate: 1 km8 bolus; Site: right antecubital; 05:05 Follow up: Response: No adverse reaction; IV Status: Completed infusion; IV Intake: bm8 1000ml 02:38 Drug: Famotidine IVP 20 mg IVP once; dilute with 10 mL 0.9% NaCl; give over 2 minutes km8 Route: IVP; Site: right antecubital; 03:14 Follow up: Response: No adverse reaction km8 02:38 Drug: Ondansetron IVP 4 mg IVP once; over 2 minutes Route: IVP; Site: right antecubital;km8 03:13 Follow up: Response: No adverse reaction; Nausea is decreased km8 04:50 Drug: Potassium PO Effervescent Tablet 25 mEq PO once; dissolve in 4 ounces of water or bm8 juice Route: PO; 05:04 Follow up: Response: No adverse reaction bm8 04:58 Drug: Pantoprazole IVP 40 mg IVP once Route: IVP; Site: right antecubital; bm8 05:04 Follow up: Response: No adverse reaction bm8 04:58 Drug: GI Cocktail without - (Maalox PO 30 ml, Lidocaine Mucous Membrane 2 % 15 bm8 ml) PO once Route: PO; 05:04 Follow up: Response: No adverse reaction bm8 Medication: 02:28 VIS not applicable for this client. km8 Intake: 05:05 IV: 1000ml; Total: 1000ml. bm8 Outcome: 05:00 Discharge ordered by . juanita 05:03 Discharged to home ambulatory, with family, bm8 05:03 Condition: stable 05:03 Discharge instructions given to patient, Instructed on discharge instructions, follow up and referral plans. medication usage, safety practices, Demonstrated understanding of instructions, follow-up care, medications, Prescriptions given X 2, 05:05 Patient left the ED. bm8 Signatures: Dispatcher [employer] EDMA Garry Smith PA PA cp Martinez, Clarissa, RN RN cm10 Mariluz Elizabeth, RN RN km8 Arabella Stratton ra3 Tad Cowart, RN RN bm8
[2024-02-18 05:28] VITALS: TEMP 97.9; O2SAT 100
[2024-02-18 05:29] VITALS: BP 102/71
--- NOTE | 2024-02-18 15:06 | RAD REPORT ---
EXAM DESCRIPTION: CT - Abdomen Pelvis W Contrast - 02/18/2024 6:19 am CLINICAL HISTORY: Abdominal pain COMPARISON: None. TECHNIQUE: Abdomen/pelvis axial images acquired with IV contrast. Coronal and sagittal reformats cre ated. Exam performed according to departmental dose-optimization program which includes automated exp osure control, adjustment of mA and/or kV according to patient size, and/or use of iterative reconstr uction technique. FINDINGS: No free air or significant free fluid. Liver, gallbladder, spleen, pancreas, adrenals, kidneys, uterus, adnexa, and urinary bladder unremark able. Nonopacified stomach, small bowel, appendix, and large bowel appear grossly unremarkable. Portions of large bowel difficult to accurately evaluate due to lack of distention. Abdominal aorta unremarkable. Small round sclerotic left femoral head lesion. This likely represents bone island. IMPRESSION: Unremarkable CT abdomen/pelvis with contrast Electronically signed by: Evin Vargas MD 02/18/2024 04:22 AM CDT Due to temporary technical issues with the PACS/Fluency reporting system, reports are being signed by the in house radiologists without review as a courtesy to insure prompt reporting. The interpreting radiologist is fully responsible for the content of the report
== END 2024-02-18 05:05 | disposition home or self-care (01) ==
LOC: ER 02:04
DX: R10.12 Left upper quadrant pain (principal); R11.0 Nausea; Z88.8 Allergy status to other drugs, medicaments and biological substances
CPT/HCPCS: 36415; 74177; 80053; 81001; 81025; 83690; 85025; 96361; 96374; 96375; 99284; C9113; J2405; J7030; Q9967